=== PATIENT | male | born 1990 | race Caucasian/White ===

== ENCOUNTER 2017-08-08 10:05 | Inpatient (IN) | payer MEDICAID, OTHER ==
[~2017-08-08] VITALS: Ht 172.7 cm; Wt 105.4 kg
[2017-08-08] MEDS ORDERED: PHEN100C4 PO (10:11)
[2017-08-08] MEDS ORDERED: SODIUM CHLORIDE 0.9% 1,000 ML IV ONE (10:14)
[2017-08-08] MEDS ORDERED: LEVETIRACETAM 500MG TABLET PO ONE (10:30)
[2017-08-08] MEDS ORDERED: LEVETIRACETAM 500MG PREMIX 100 ML IV ONE (10:30)
[2017-08-08 10:49] LABS: HEMATOCRIT. 45.3 % (42.0-52.0); HEMOGLOBIN. 14.6 g/dL (14.0-18.0); MEAN CORPUSCULAR HEMOGLOBIN 22.6 pg (28.0-32.0); MEAN CORPUSCULAR VOLUME 70.2 fL (80.0-94.0); MEAN PLATELET VOLUME 7.9 fl (7.4-10.4); PLATELET 283 x1000/uL (130-400); RED BLOOD CELL COUNT 6.46 mill/uL (4.7-6.1); RED CELL DISTRIBUTION WIDTH 15.6 % (11.6-14.6)
[2017-08-08 10:55] LABS: CHLORIDE 102 mEq/L (98-107)
[2017-08-08 10:58] LABS: ETHANOL BLOOD < 10 mg/dL
[2017-08-08 11:40] LABS: PLATELET ESTIMATE NORMAL
[2017-08-08 11:56] LABS: PARTIAL THROMBOPLASTIN TIME 25.2 sec (23.4-31.0); PROTHROMBIN TIME 10.5 sec (9.4-11.6)
[2017-08-08 12:17] LABS: *BARBITURATES SCREEN URINE NEGATIVE (NEGATIVE); *BENZODIAZEPINES SCREEN URINE PRESUMTIVE POSITIVE (NEGATIVE)
[2017-08-08 12:18] LABS: *AMPHETAMINES SCREEN URINE NEGATIVE (NEGATIVE); *COCAINE SCREEN URINE NEGATIVE (NEGATIVE); CANNABINOID URINE SCREEN NEGATIVE (NEGATIVE); METHADONE URINE SCREEN NEGATIVE (NEGATIVE); OPIATES URINE SCREEN NEGATIVE (NEGATIVE); PHENCYCLIDINE URINE SCREEN NEGATIVE (NEGATIVE)
[2017-08-08 14:39] VITALS: BP 114/56
[2017-08-08 14:41] VITALS: BP 110/59
[2017-08-08] MEDS ORDERED: LORAZEPAM 2MG/ML CPJ IV PRN (15:00)
[2017-08-08] MEDS ORDERED: CLONIDINE 0.1MG TABLET PO PRN (15:00)
[2017-08-08] MEDS ORDERED: HYDROCODONE/ACETAMINOPHEN 5/325MG TABLET PO PRN (15:00)
[2017-08-08] MEDS ORDERED: ONDANSETRON HCL 4MG/2ML VIAL IV PRN (15:00)
[2017-08-08 16:00] VITALS: BP 119/63
[2017-08-08] MEDS: SODIUM CHLORIDE 0.45% 1,000 ML IV SCH (17:55)
[2017-08-08 18:00] VITALS: BP 123/54
[2017-08-08 20:00] VITALS: BP 136/63
[2017-08-08 22:00] VITALS: BP 127/62
[2017-08-09] VITALS (11 sets, daily range): BP systolic 111–142; BP diastolic 51–84
[2017-08-09] MEDS: SODIUM CHLORIDE 0.45% 1,000 ML IV SCH ×2 (03:56→15:59)
[2017-08-09 07:27] LABS: BASOPHILS % 0.5 % (0.0-2.0); EOSINOPHILS % 1.7 % (0.0-5.0); HEMOGLOBIN. 13.6 g/dL (14.0-18.0); LYMPHOCYTES % 25.9 % (20.0-50.0); MEAN CORPUSCULAR HEMOGLOBIN 22.9 pg (28.0-32.0); MEAN CORPUSCULAR VOLUME 70.5 fL (80.0-94.0); MONOCYTES % 8.5 % (2.0-8.0); NEUTROPHILS % 63.4 % (40.0-76.0); PLATELET 259 x1000/uL (130-400); RED BLOOD CELL COUNT 5.95 mill/uL (4.7-6.1); RED CELL DISTRIBUTION WIDTH 15.5 % (11.6-14.6)
[2017-08-09 08:45] LABS: CHLORIDE 104 mEq/L (98-107)
[2017-08-09] MEDS ORDERED: ASPIRIN 81MG EC TABLET PO SCH (09:00)
[2017-08-09] MEDS ORDERED: LAMOTRIGINE 25MG TABLET PO SCH (15:00)
== END 2017-08-09 19:20 | disposition short-term general hospital (02) | DRG 101 ==
LOC: ER 10:57 → 5EST 11:32 → ENRESERV 12:45 → SUPCPDRO 14:52
PROVIDERS: ADMIT Hospitalist; ATTEND Hospitalist
DX: G40.409 Other generalized epilepsy and epileptic syndromes, not intractable, without status epilepticus (principal); T42.0X5A Adverse effect of hydantoin derivatives, initial encounter; X58.XXXA Exposure to other specified factors, initial encounter; Y92.89 Other specified places as the place of occurrence of the external cause
CPT/HCPCS: 36415; 70450; 80048; 80053; 80185; 80305; 84439; 84443; 85025; 85610; 85730; 96374; 99291; G0482; J1953; J7030